=== PATIENT | male | born 1995 | race Two or more races ===

== ENCOUNTER 2022-02-11 18:54 | Emergency (ER) | payer SELFPAY ==
[~2022-02-11] VITALS: Ht 177.8 cm; Wt 77.1 kg
[2022-02-11 18:56] VITALS: BP 138/77
[2022-02-11] MEDS: IPRATROPIUM BROM 0.5 MG/2.5ML INH SOL NEB ONE (22:49)
[2022-02-11] MEDS: ALBUTEROL SULF 2.5 MG/0.5ML(0.5%) NEB SOLN NEB ONE (22:49)
== END 2022-02-12 03:58 | disposition left against medical advice (07) ==
LOC: ER 18:54
DX: R05.9 Cough, unspecified (principal); R09.81 Nasal congestion; Z53.21 Procedure and treatment not carried out due to patient leaving prior to being seen by health care provider; Z20.822 Contact with and (suspected) exposure to COVID-19
CPT/HCPCS: 36415; 87426; 87804; 94640; J7644